=== PATIENT | male | born 1955 | race Caucasian/White ===

== ENCOUNTER 2020-09-28 10:18 | Emergency (ER) | payer BC ==
[~2020-09-28] VITALS: Ht 170.2 cm; Wt 72.7 kg
[2020-09-28] MEDS ORDERED: APIX5TAB PO (10:24)
[2020-09-28] MEDS ORDERED: ATOR20TA86 PO (10:24)
[2020-09-28] MEDS ORDERED: ACETAMINOPHEN 500 MG TABLET PO ONE (10:45)
[2020-09-28 11:02] LABS: BASOPHILS % (AUTO) 0.8 % (0.0-2.0); EOSINOPHILS % (AUTO) 1.9 % (1.0-6.0); HEMATOCRIT 39.3 % (41-53); LYMPHOCYTES # (AUTO) 1.3 K/uL (1.0-4.8); MEAN CORPUSCULAR HEMOGLOBIN 28.6 pg (26.0-34.0); MEAN CORPUSCULAR HGB CONC 33.1 G/dL (31.0-37.0); MEAN CORPUSCULAR VOLUME 87 fL (80-100); MONOCYTES # (AUTO) 0.5 K/uL (0.1-1.0); MONOCYTES % (AUTO) 9.4 % (2.0-9.0); NEUTROPHILS # (AUTO) 3.6 K/uL (1.8-7.7); NEUTROPHILS % (AUTO) 64.9 % (40.0-70.0); PLATELET COUNT (AUTO) 298 K/uL (150-450); RED BLOOD CELL COUNT(AUTO) 4.53 MIL/uL (4.50-5.90); RED CELL DISTRIBUTION WIDTH 20.3 % (11.5-14.5)
[2020-09-28 11:04] VITALS: BP 134/79
[2020-09-28 11:12] LABS: CALCIUM, TOTAL 9.3 mg/dL (8.8-10.5); CREATININE 1.46 mg/dL (0.60-1.30); POTASSIUM 4.2 mmol/L (3.5-5.1)
[2020-09-28 11:22] LABS: ALBUMIN 3.3 g/dL (3.4-5.0); BILIRUBIN,TOTAL 0.3 mg/dL (0.1-1.0); TOTAL PROTEIN, SERUM 7.1 g/dL (6.4-8.2)
[2020-09-28 11:29] LABS: INR 0.9 (0.9-1.1)
== END 2020-09-28 12:06 | disposition left against medical advice (07) ==
LOC: EMS 10:30
DX: R07.2 Precordial pain (principal); I11.9 Hypertensive heart disease without heart failure; E78.00 Pure hypercholesterolemia, unspecified; I25.10 Atherosclerotic heart disease of native coronary artery without angina pectoris; Z88.8 Allergy status to other drugs, medicaments and biological substances
CPT/HCPCS: 93005; 36415-L1; 36415-TC; 71045-TC